=== PATIENT | male | born 1995 | race Hispanic/Latino ===

== ENCOUNTER 2017-01-13 16:13 | Emergency (ER) | payer SELFPAY ==
--- NOTE | 2017-01-13 18:54 | RAD ---
PORTABLE CHEST: History: Cough, fever. FINDINGS: Lungs are clear. No infiltrates seen. Heart and mediastinum unremarkable. IMPRESSION: No acute abnormality seen on portable exam. POS: [facility]
== END 2017-01-13 19:24 | disposition home or self-care (01) ==
LOC: ERS 16:13
DX: J20.9 Acute bronchitis, unspecified (principal); Z71.6 Tobacco abuse counseling
CPT/HCPCS: 71010; 94640; 99406; J7620

== ENCOUNTER 2017-07-01 20:49 | Emergency (ER) | payer SELFPAY ==
[2017-07-01 21:33] LABS: Albumin 4.8 g/dL (3.5-5.0)
[2017-07-01 21:35] LABS: Calcium 9.5 mg/dL (7.8-10.44); Chloride 95 mmol/L (98-107); Potassium 3.2 mmol/L (3.5-5.1); Sodium 134 mmol/L (136-145)
[2017-07-01 21:36] LABS: Band 7 % (5-11); Eosinophils 1 % (0-10); Globulin 3.9 g/dL (2.4-3.5); Glucose 77 mg/dL (70-105); Hemoglobin 16.9 g/dL (14.0-18.0); Lymphocytes 13 % (21-51); MDiff Complete? YES; Mean Corpuscular Hemoglobin 31.6 pg (27.0-31.0); Mean Platelet Volume 7.3 fL (7.4-10.4); Monocytes 8 % (0-10); Neutrophil 71 % (42-75); PLT Morphology Comment Appears Adequate; Platelet Count 263 thou/uL (130-400); Protein, Total 8.7 g/dL (6.0-8.3); RBC Distribution Width 11.8 % (11.5-14.5); Red Blood Cell (RBC) Count 5.34 mill/uL (4.70-6.10); White Blood Cell (WBC) Count 20.6 thou/uL (4.8-10.8)
[2017-07-01 21:37] LABS: Carbon Dioxide 23 mmol/L (22-29)
[2017-07-01 21:38] LABS: Bilirubin, Total 1.3 mg/dL (0.2-1.2)
[2017-07-01 21:39] LABS: Alkaline Phosphatase 121 U/L (40-150); Calc. Creatinine Clearance 0 mL/min (70-130); Estimated GFR-MDRD 55
[2017-07-01 21:40] LABS: BUN (Urea Nitrogen) 14 mg/dL (8.9-20.6)
[2017-07-01 21:41] LABS: AST (SGOT) 26 U/L (5-34)
[2017-07-01 21:42] LABS: ALT (SGPT) 17 U/L (8-55)
[2017-07-01 22:02] LABS: Anion Gap 19 mmol/L (10-20)
[2017-07-01] MEDS ORDERED: Potassium Chloride 10 MEQ in Premix Bag 1 BAG IVPB SCH (23:45)
[2017-07-01] MEDS ORDERED: Potassium Chloride 20 MEQ TAB ONE (23:48)
[2017-07-01 23:53] LABS: Bilirubin Negative (Negative); Blood, Urine Negative (Negative); Clarity CLEAR (Clear); Glucose, Urine (Dipstick) Negative (Negative); Leukocyte Negative (Negative); Nitrite Negative (Negative); Protein, Urine (Dipstick) Negative (Neg-Trace); Specific Gravity, Urine 1.007 (1.002-1.036); Urobilinogen 0.2 mg/dL (0.2-1.0); pH, Urine 5.5 (5.0-9.0)
== END 2017-07-02 02:07 | disposition home or self-care (01) ==
LOC: ERS 20:49
DX: T75.89XA Other specified effects of external causes, initial encounter (principal); E87.6 Hypokalemia; F17.210 Nicotine dependence, cigarettes, uncomplicated; Z71.6 Tobacco abuse counseling
CPT/HCPCS: 36415; 80053; 81003; 85025; 85652; 96361; 96365; 96366; J3480

== ENCOUNTER 2017-09-24 08:15 | Emergency (ER) | payer SELFPAY ==
[2017-09-24] MEDS ORDERED: Acetaminophen 500 MG TAB ONE (08:37)
[2017-09-24] MEDS ORDERED: Dexamethasone 4 mg/ml Vial ONE (08:51)
[2017-09-24] MEDS ORDERED: AMOXicillin 250 MG CAP ONE (08:51)
== END 2017-09-24 09:03 | disposition home or self-care (01) ==
LOC: ERS 08:15
DX: J02.0 Streptococcal pharyngitis (principal); F17.210 Nicotine dependence, cigarettes, uncomplicated
CPT/HCPCS: 87081; 87430; 99283; J1100

== ENCOUNTER 2024-10-02 12:28 | Emergency (ER) | payer SELFPAY | END 2024-10-02 13:20 | disposition home or self-care (01) | LOC: ERS 12:28 | DX: U07.1 COVID-19 (principal); F17.210 Nicotine dependence, cigarettes, uncomplicated | CPT/HCPCS: 71045; 87428 ==